=== PATIENT | female | born 1980 | race Caucasian/White ===

== ENCOUNTER 2019-05-27 12:40 | Outpatient (RCR) | payer OTHER, SELFPAY ==
--- NOTE | 2019-05-27 13:45 | PTOPEVAL ---
Thank you for referring this patient to [facility]. Please review, sign, date and return this plan of care JIGNESH. I agree with and certify that the following plan of care is medically necessary. Referring Physician Date Admitting Provider: Attending Provider: PHYSICIAN NOT ON STAFF Referring Provider: *PT Outpatient Evaluation Start: 05/27/19 13:01 Freq: Status: Active Protocol: Document 05/27/19 13:02 NICOLLE (Rec: 05/27/19 13:37 [id number]) Therapy Assessment Status Assessment Status Assessment Status Evaluation Outpatient Past Medical History Past Medical History Reason Unable to Obtain see patient intake form Evaluation Information Problem Diagnosis fibromyalgia Onset 05/02/19 Subjective Information patient reports sheis having Query Text:As Reported By Patient/ pain everywhere this date. Family she reports she has had 2 dislocations of the L knee and bilateral hips in the past 2 days. she reports she has increased pain recently and has just switched medications from tramadol to naltrexone. she reports she is switching due to the new studie son opiod addictions. she reports she has been flared up since before the switch in meds, but reports she is worse since swintching medications. she reports she will have a physical dislocations of the hips that she has to put back in herself. Prior Level of Function Comments Additional Prior Level of Function patient reports she has been Comments diagnosed with Fibro since 2001. she reports she has had EDS officially diagnosed for a few years. she reports she does own a knee brace, but does not always remember to put it on. she reports she has never seen an ortho doc for her hips. Pain Assessment Timing of Pain Assessment Timing of Pain Assessment Assessment Pain Scale Pain Scale Used Numeric (1 - 10) Self Report Pain Assessment Bilateral Generalized Reported Pain Level 8 Pain Description Burning,Stabbing Current Pain Intensity
--- NOTE | 2019-06-10 11:43 | PCPTNOTE ---
06/10/19-pt called and cancelled apt secondary to illness-HM.
--- NOTE | 2019-06-12 10:56 | PCPTNOTE ---
patient called and cancelled treatment today. ASHLEY
--- NOTE | 2019-07-01 13:11 | PCPTNOTE ---
patient called and cancelled appt for today. ASHLEY
--- NOTE | 2019-07-03 11:49 | PCPTNOTE ---
patient called and cancelled appt today. Taurus
== END 2019-07-15 17:00 | disposition home or self-care (01) ==
LOC: CHSPT 12:40
PROVIDERS: PCP Internal Medicine
DX: M79.7 Fibromyalgia (principal)
CPT/HCPCS: 97110; 97162; 97530

== ENCOUNTER 2019-11-02 21:27 | Emergency (ER) | payer OTHER, SELFPAY ==
--- NOTE | ~2019-11-02 | CT_ITS ---
EXAMINATION: CT abdomen pelvis wo con DATE: 11/02/2019 22:58 INDICATION: Right flank pain. TECHNIQUE: Computed tomography (CT) of the abdomen and pelvis was performed without intravenous contr ast. Automated exposure control and iterative reconstruction technique were employed. The dose-length product was 460.46 mGy-cm. COMPARISON: CT abdomen and pelvis 01/27/2019 FINDINGS: The visualized portions of the lung bases demonstrate minimal atelectasis. No pleural effus ion. The heart size is normal. No pericardial effusion. The liver, gallbladder, spleen, pancreas, and adrenal glands are normal. There is a 2 mm stone in right kidney. There is mild right hydronephrosis . There is a 3 mm stone in proximal right ureter. Left kidney is normal. There are no dilated loops o f bowel. There are changes of appendectomy. There are no pathologically enlarged lymph nodes. There i s no free intraperitoneal fluid. The bones are unremarkable. IMPRESSION: 1. 3 mm stone in proximal right ureter with mild right hydronephrosis. 2. 2 mm nonobstructing right kidney stone. Reviewed, dictated and finalized at location A.
[2019-11-02 22:00] VITALS: BP 152/78; PULSE 74; RESP 14; TEMP 36.6; O2SAT 96
--- NOTE | 2019-11-02 22:36 | ED.BACK ---
HPI - Back Pain/Injury General Chief Complaint: Back Pain/Injury Stated Complaint: R lower back pain Source: patient Mode of arrival: ambulatory Limitations: no limitations History of Present Illness HPI Narrative: 38-year-old with a long history of kidney stones complains of. She denies vomiting fevers dysuria hematuria. Status post appendectomy and hysterectomy. Ureteral stent placement 2005 Related Data Home Medications Medication Instructions Recorded Confirmed amitriptyline 25 mg PO DAILY 11/02/19 11/02/19 quetiapine 25 mg PO HS 11/02/19 11/02/19 topiramate 50 mg PO DAILY 11/02/19 11/02/19 Allergies Allergy/AdvReac Type Severity Reaction Status Date / Time scopolamine Allergy Intermediate Unknown Verified 11/03/19 00:43 nortriptyline Allergy Unknown Verified 11/02/19 22:30 ESPAÑA Allergy Unknown Uncoded 11/02/19 22:42 Review of Systems Constitutional: Constitutional: Denies chills and Denies fever(s) Cardiovascular: Cardiovascular: Denies chest pain Respiratory: Respiratory: Denies dyspnea Gastrointestinal: Gastrointestinal: Reports nausea and Denies vomiting Genitourinary: Genitourinary: Denies hematuria and Denies dysuria [facility] Past Medical History Medical History (Updated 11/03/19 @ 21:57 by Wali Banks MD) Calcium oxalate kidney stones Migraine Struvite kidney stones Surgical History Surgical History (Updated 11/03/19 @ 21:55 by Wali Banks MD) H/O: hysterectomy History of appendectomy Exam Narrative: Exam Narrative: Siting up in bed, appears uncomfortable; in room; supportive. Const: Orientation/consciousness: patient oriented x3 Chest: Chest palpation & inspection: normal inspection of the chest Resp: Effort & Inspection: normal respiratory effort Auscultation: clear to auscultation bilaterally : General: No CVA tenderness Other: Tender right lower back extending around flank to right lateral abdomen. NO hepatomegaly, rebound or guarding. Skin: General skin exam: normal color Rashes: no rashes Extrem: General: normal to inspection Course Course Emergency Course: No relief with Toradol; Dilaudid decreased pain. CT findings discussed. High probability of passing 3 mm proximal stone. Pt given tamsolusin . D.C. with tamsolusin daily and Hoyt prn. Vital Signs Vital signs: Vital Signs Temperature 36.6 C 11/02/19 22:00 Pulse Rate 74 11/02/19 22:00 Respiratory Rate 14 11/02/19 22:00 Blood Pressure 152/78 H 11/02/19 22:00 Pulse Oximetry 96 11/02/19 22:00 Temperature 36.6 C 11/02/19 22:00 Pulse Rate 95 11/03/19 00:39 Respiratory Rate 14 11/03/19 00:39 Blood Pressure 121/75 11/03/19 00:10 Pulse Oximetry 100 11/03/19 00:39 MDM - Back Pain/Injury MDM Narrative Medical decision making narrative: Pain down to a #6/10 after Dilaudid 1 mg. Differential Diagnosis Differential diagnosis: Likely strain of lumbar region, renal colic, pyelonephritis and other (cholecystitis) Lab Data Result diagrams: 11/02/19 23:42 11/02/19 23:42 Labs: Lab Results 11/02/19 11/02/19 11/02/19 Range/Units 23:42 23:42 23:42 WBC 13.2 H (4.8-10.8) K/mm3 RBC 4.48 (4.20-5.40) M/mm3 Hgb 13.9 (12.0-15.0) g/dL Hct 42.7 (35.0-49.0) % MCV 95.3 (78.0-102.0) fL MCH 31.0 (27.0-31.0) pg MCHC 32.6 (32.0-36.0) g/dL RDW 14.3 (11.6-14.4) % Plt Count 345 (150-420) K/mm3 MPV 9.3 (9.2-11.8) fl Immature Gran % (Auto) 0.7 H (0.0-0.0) % Neut % (Auto) 81.8 H (50.0-70.0) % Lymph % (Auto) 12.2 L (18.0-42.0) % Evans % (Auto) 4.6 (2.0-11.0) % Eos % (Auto) 0.3 L (1.0-6.0) % Baso % (Auto) 0.4 (0.0-1.0) % Lymph # (Auto) 1.61 (1.10-4.50) K/mm3 Evans # (Auto) 0.61 (0.10-0.90) K/mm3 Eos # (Auto) 0.04 (0.02-0.50) K/mm3 Baso # (Auto) 0.05 (0.00-0.10) K/mm3 Abs Immat Gran (auto) 0.09 H (0.00-0.00) K/mm3 Absolute Neuts (auto)
[2019-11-02] MEDS: KETOROLAC 30 MG/ML VIAL (*BKC) IV PUSH (22:59)
[2019-11-02] MEDS: ONDANSETRON INJ 4 MG/2 ML VIAL IV PUSH (22:59)
[2019-11-02 23:00] VITALS: BP 150/79; PULSE 101; RESP 16; O2SAT 96
[2019-11-02] MEDS: HYDROmorphone HCL 2 MG/ML VIAL 1 MG IV PUSH (23:37)
[2019-11-02 23:49] LABS: Basophils Absolute Auto 0.05 K/mm3 (0.00-0.10); Basophils Percent Auto 0.4 % (0.0-1.0); Eosinophils Absolute Auto 0.04 K/mm3 (0.02-0.50); Eosinophils Percent Auto 0.3 % (1.0-6.0); Hematocrit 42.7 % (35.0-49.0); Hemoglobin 13.9 g/dL (12.0-15.0); Immature Granulocyte Absolute 0.09 K/mm3 (0.00-0.00); Immature Granulocyte Percent A 0.7 % (0.0-0.0); Lymphocytes Absolute Auto 1.61 K/mm3 (1.10-4.50); Lymphocytes Percent Auto 12.2 % (18.0-42.0); Mean Corpuscular HGB Conc 32.6 g/dL (32.0-36.0); Mean Corpuscular Volume 95.3 fL (78.0-102.0); Mean Platelet Volume 9.3 fl (9.2-11.8); Monocytes Absolute Auto 0.61 K/mm3 (0.10-0.90); Monocytes Percent Auto 4.6 % (2.0-11.0); Neutrophils Absolute Auto 10.8 K/mm3 (1.7-7.2); Neutrophils Percent Auto 81.8 % (50.0-70.0); Platelet Count Result 345 K/mm3 (150-420); Red Blood Count 4.48 M/mm3 (4.20-5.40); Red Cell Distribution Width 14.3 % (11.6-14.4); White Blood Count 13.2 K/mm3 (4.8-10.8)
[2019-11-03 00:10] VITALS: BP 121/75; PULSE 91; RESP 16; O2SAT 96
[2019-11-03 00:11] LABS: Add Urine Microscopic? YES; Alanine Aminotransferase 15 U/L (14-59); Albumin Level 3.6 g/dL (3.4-5.0); Alkaline Phosphatase 96 U/L (46-116); Anion Gap 14.7 mmol/L (7-16); Appearance Urine Sl Cloudy (Clear); Aspartate Amino Transferase 11 U/L (15-37); Bilirubin Urine Negative (Negative); Bilirubin,Total 0.2 mg/dL (0.00-1.00); Blood Urea Nitrogen 8 mg/dL (7-18); Blood Urine 2+ (Negative); Calcium 8.8 mg/dL (8.5-10.1); Carbon Dioxide 20 mmol/L (21-32); Chloride 108 mmol/L (98-108); Color Urine Yellow (Yellow); Estimated CRCL calculation 59 ml/min; Estimated Glomerular Filt Rate 54; Glucose 121 mg/dL (70-99); Glucose Urine UA Negative (Negative); Ketones Urine Trace (Negative); Leukocyte Esterase Ur Negative (Negative); Nitrate Urine Negative (Negative); Osmolality Calculated 287 mOsm/kg (285-295); Potassium 3.7 mmol/L (3.5-5.1); Protein Urine Negative (Negative); Sodium 139 mmol/L (136-145); Specific Grav Ur 1.025 (1.010-1.020); Total Protein 7.5 g/dL (6.4-8.2); pH Urine 6.5 (5.0-8.0)
[2019-11-03 00:20] LABS: Bacteria Urine 1+ /hpf; Mucus Urine Moderate /lpf; Squamous Epithelial Cell Urine Moderate /hpf (Few); WBC Urine None seen /hpf (0-3)
[2019-11-03] MEDS: MORPHINE SULFATE 4 MG/ML INJ IV PUSH (00:35)
[2019-11-03 00:39] VITALS: PULSE 95; RESP 14; O2SAT 100
[2019-11-03] MEDS: TAMSULOSIN HCL 0.4 MG CAPSULE PO (01:10)
== END 2019-11-03 01:15 | disposition home or self-care (01) ==
PROVIDERS: Emergency Provider Family Medicine; PCP Internal Medicine
DX: N20.0 Calculus of kidney (principal)
CPT/HCPCS: 36415; 74176; 80053; 81001; 85025; 96374; 96375; 99283; 99284; A9270; J1170; J1885; J2270; J2405

== ENCOUNTER 2019-11-04 18:11 | Emergency (ER) | payer OTHER, SELFPAY ==
--- NOTE | ~2019-11-04 | XR_ITS ---
EXAMINATION: XR abdomen/kub 1V INDICATION: Right-sided abdominal pain TECHNIQUE: Supine views of the abdomen were obtained on 2 radiographs. COMPARISON: CT from yesterday FINDINGS: The previously described right proximal ureteral stone is not definitely identified. Pelvic calcifications likely reflect phleboliths. The bowel gas pattern is normal. There are surgical clips in the right abdomen. A 2 mm stone projects in the right kidney. IMPRESSION: 1. Previously described right proximal ureteral stone not definitely identified. Reviewed, dictated and finalized at location A. IMPRESSION: 1. Previously described right proximal ureteral stone not definitely identified .
[2019-11-04 18:20] VITALS: BP 123/78; PULSE 93; RESP 18; TEMP 36; O2SAT 100
[2019-11-04 18:41] LABS: Basophils Absolute Auto 0.1 K/mm3 (0.0-0.1); Basophils Percent Auto 0.4 % (0.2-1.2); Eosinophils Absolute Auto 0.1 K/mm3 (0-0.3); Eosinophils Percent Auto 0.4 % (0-4.4); Hematocrit 39.1 % (37.0-47.0); Immature Granulocyte Absolute 0.05 K/mm3 (0.00-0.031); Immature Granulocyte Percent A 0.4 % (0-0.5); Lymphocytes Absolute Auto 2.12 K/mm3 (0.9-3.2); Lymphocytes Percent Auto 15.1 % (18.3-44.2); Mean Corpuscular HGB Conc 33.2 g/dl (32-36); Mean Corpuscular Hemoglobin 31.4 pg (26-34); Mean Corpuscular Volume 94.4 fl (80-100); Mean Platelet Volume 9.6 fl (7.4-10.4); Monocytes Absolute Auto 1.1 K/mm3 (0.1-0.6); Neutrophils Absolute Auto 10.7 K/mm3 (1.3-6.7); Neutrophils Percent Auto 75.7 % (45.5-73.1); Platelet Count Result 297 k/mm3 (150-375); Red Blood Count 4.14 M/mm3 (4.2-5.4); Red Cell Distribution Width 14.1 % (11.5-14.5); White Blood Count 14.1 K/mm3 (4.5-10.0)
[2019-11-04 18:53] LABS: Blood Urea Nitrogen 10 mg/dL (7-17); Carbon Dioxide 20 mmol/L (22-30); Chloride 104 mmol/L (98-107); Estimated CRCL calculation 63 ml/min; Estimated Glomerular Filt Rate 42; Glucose 100 mg/dL (65-105); Potassium 3.6 mmol/L (3.4-5.0); Sodium 133 mmol/L (137-145)
--- NOTE | 2019-11-04 19:07 | ED.GENADULT ---
HPI - General Adult General Chief complaint: Abdominal Pain Stated complaint: KIDNEY STONE Time Seen by Provider: 11/04/19 18:55 History of Present Illness HPI narrative: Patient is a 38 y/o female complaining of right flank pain starting 2 days ago. She describes her pain as a pressure and rates it as 7-8/10. Her pain radiates to right groin. She had some vomiting yesterday. She denies any fever or dysuria. Related Data Home Medications Medication Instructions Recorded Confirmed amitriptyline 25 mg PO DAILY 11/02/19 11/02/19 quetiapine 25 mg PO HS 11/02/19 11/02/19 topiramate 50 mg PO DAILY 11/02/19 11/02/19 Allergies Allergy/AdvReac Type Severity Reaction Status Date / Time scopolamine Allergy Intermediate Unknown Verified 11/03/19 00:43 nortriptyline Allergy Unknown Verified 11/02/19 22:30 ESPAÑA Allergy Unknown Uncoded 11/02/19 22:42 Review of Systems Constitutional: Constitutional: Denies chills, Denies fever(s), Denies headache(s) and Denies weakness Eyes: Eyes: Denies blurry vision ENT: Denies headache(s) and Denies neck pain Cardiovascular: Cardiovascular: Denies chest pain and Denies dyspnea Respiratory: Respiratory: Denies cough and Denies dyspnea Gastrointestinal: Gastrointestinal: Denies abdominal pain, Denies diarrhea, Reports nausea and Reports vomiting Genitourinary: Genitourinary: Denies hematuria, Denies dysuria and Reports flank pain Musculoskeletal: Musculoskeletal: Denies back pain and Denies neck pain Neurologic: Denies headache(s) and Denies weakness [facility] Past Medical History Medical History Calcium oxalate kidney stones Migraine Struvite kidney stones Surgical History Surgical History H/O: hysterectomy History of appendectomy Social History Social History Gender identity (if verbalized by the patient): Female Exam Const: General: no acute distress and well developed Orientation/consciousness: oriented to person, oriented to place, oriented to time and patient oriented x3 HENMT: Head: normocephalic Ears: external ears normal General nose exam: Normal external nose present Eyes: General: appearance normal, both eyes and all related structures Conjunctivae: conjunctivae normal Neck: Neck: normal visual inspection and full ROM Chest: Chest palpation & inspection: normal inspection of the chest and no tenderness Resp: Effort & Inspection: normal respiratory effort Auscultation: clear to auscultation bilaterally Cardio: Rate: regular rate Rhythm: regular rhythm GI: GI Palp: No abdominal tenderness and Yes Soft to palpation Skin: General skin exam: normal color and turgor normal Neuro: General: oriented to person, oriented to place, oriented to time and patient oriented x3 Cognition (Neuro): normal cognition Extrem: General: normal to inspection, full ROM and no pedal edema Psych: Appearance: grossly normal Mental Status: mental status grossly normal Affect: normal affect Course Reevaluation(s) Reevaluation #1: Rechecked. Patient feels slightly better. Discussed with patient about the options of admission for pain control vs discharge and follow up with urology. Patient prefers to be discharged. She states that she still has Hydrocodone and Flomax prescribed from her recent ED visit for same problem. Date: 11/04/19 Time: 20:51 Vital Signs Vital signs: Vital Signs Temperature 36.0 C L 11/04/19 18:20 Pulse Rate 93 11/04/19 18:20 Respiratory Rate 18 11/04/19 18:20 Blood Pressure 123/78 11/04/19 18:20 Pulse Oximetry 100 11/04/19 18:20 Temperature 36.0 C L 11/04/19 18:20 Pulse Rate 76 11/04/19 19:50 Respiratory Rate 18 11/04/19 19:50 Blood Pressure 115/72 11/04/19 19:50 Pulse Oximetry 98 11/04/19 19:50 Medical Decision Making Vital Signs Vital Signs: Maddy
[2019-11-04] MEDS: SODIUM CHLORIDE 0.9% IV 1,000 ML 999 ML IV CONT (19:46)
[2019-11-04] MEDS: MORPHINE SULFATE 4 MG/ML INJ IV PUSH ×2 (19:47→20:41)
[2019-11-04 19:50] VITALS: BP 115/72; PULSE 76; RESP 18; O2SAT 98
[2019-11-04 20:11] LABS: Add Urine Microscopic? YES; Appearance Urine Clear (Clear); Bilirubin Urine Negative (Negative); Blood Urine 1+ (Negative); Color Urine Yellow (Yellow); Glucose Urine UA Negative (Negative); Ketones Urine Negative (Negative); Leukocyte Esterase Ur Negative LEU/UL (Negative); Mucus Urine Few /lpf; Nitrate Urine Negative (Negative); Protein Urine Negative (Negative); Specific Grav Ur 1.021 (1.001-1.035); Squamous Epithelial Cell Urine Many /hpf (Few); Urobilinogen Urine Negative mg/dL (<2.0); WBC Urine 0-3 /hpf
[2019-11-04] MEDS: KETOROLAC 30 MG/ML VIAL (*BKC) IV PUSH (20:41)
== END 2019-11-04 21:51 | disposition home or self-care (01) ==
PROVIDERS: Emergency Provider Emergency Medicine; PCP Internal Medicine
DX: N20.1 Calculus of ureter (principal)
CPT/HCPCS: 36415; 74018; 80048; 81001; 85025; 96361; 96374; 96375; 96376; 99284; J1885; J2270; J7030

== ENCOUNTER 2019-11-07 02:03 | Day surgery (SDC) | payer OTHER, SELFPAY ==
[2019-11-06 12:04] VITALS: BMI 31.7
--- NOTE | ~2019-11-07 | XR_ITS ---
EXAMINATION: XR abdomen/kub 1V DATE: 11/07/2019 06:35 INDICATION: Right ureteral stone. TECHNIQUE: A supine view of the abdomen on 2 radiographs was obtained. COMPARISON: CT abdomen and pelvis 11/02/2019 FINDINGS: There are no dilated loops of bowel. There are surgical clips in right abdomen. The kidneys are obscured by bowel. IMPRESSION: 1. No visible urolithiasis. Reviewed, dictated and finalized at location A. IMPRESSION: 1. No visible urolithiasis.
--- NOTE | ~2019-11-07 | CT_ITS ---
EXAMINATION: CT abdomen pelvis wo con DATE: 11/07/2019 07:48 INDICATION: Right renal stone. TECHNIQUE: Computed tomography (CT) of the abdomen and pelvis was performed without intravenous contr ast. Automated exposure control and iterative reconstruction technique were employed. The dose-length product was 412.93 mGy-cm. COMPARISON: CT abdomen and pelvis 11/02/2019 FINDINGS: The visualized portions of the lung bases demonstrate mild atelectasis. No pleural effusion . The heart size is normal. No pericardial effusion. The liver, gallbladder, spleen, pancreas, adrena l glands, and left kidney are normal. There is a 3 mm stone in right kidney. There is mild right hydr oureter. There are no dilated loops of bowel. There are no pathologically enlarged lymph nodes. There is no free intraperitoneal fluid. There is mild thoracolumbar spondylosis. IMPRESSION: 1. Mild right hydroureter. Interval passage of the right ureteral stone. 2. 3 mm nonobstructing right kidney stone. Reviewed, dictated and finalized at location A.
--- NOTE | 2019-11-07 05:59 | ECG_ITS ---
Measurements Intervals Rogers Rate: 72 P: 51 GA: 169 QRS: 73 QRSD: 91 T: 33 QT: 374 QTc: 412 Interpretive Statements SINUS RHYTHM BASELINE ARTIFACT- I, III, AVR, AVL, V1 NORMAL ECG Electronically Signed On 11-07-2019 7:32:19 CDT by Trev Jones D.O.
[2019-11-07] MEDS: LACTATED RINGERS 1,000 ML 30 ML IV CONT (07:04)
[2019-11-07] MEDS: ONDANSETRON INJ 4 MG/2 ML VIAL IV PUSH (07:05)
[2019-11-07 07:19] LABS: Prothrombin Time 12.5 Seconds (11.1-14.7)
[2019-11-07 07:20] LABS: Partial Thromboplastin Time 28.7 SECONDS (22.3-36.8)
--- NOTE | 2019-11-07 07:21 | P.PNAN_ITS ---
Anes - Initial Pre Proc Eval Procedure: Operation Date: 11/07/19 08:30 Proposed Procedures p Right Extracorporeal Shock Wave Lithotripsy - Sang Layton MD Date/Time: 11/07/19 07:21 Surgeon: Sang Layton MD Pre Op Diagnosis: Right Renal Stone and Right Ureter Stone Patient Data Age: 38 Gender: F Height: 5 ft 9 in Weight: 97.52 kg Allergies Allergy/AdvReac Type Severity Reaction Status Date / Time scopolamine Allergy Intermediate RASH NAUSEA Verified 11/06/19 12:06 adhesive tape Allergy Rash Verified 11/06/19 12:07 nortriptyline AdvReac PARANOIA Verified 11/06/19 12:06 ESPAÑA Allergy HEART Uncoded 11/06/19 12:06 PALPITATIONS, SHORTNESS OF BREATH, FEVER Home Medications Medication Instructions Recorded Confirmed Type amitriptyline 25 mg PO HS 11/02/19 11/07/19 History quetiapine 25 mg PO HS 11/02/19 11/07/19 History topiramate 150 mg PO HS 11/02/19 11/07/19 History hydrocodone-acetaminophen [[place]] 2 tablet PO Q6H PRN #14 tablet 11/03/19 11/07/19 Rx tamsulosin 0.4 mg PO HS #20 cap 11/03/19 11/07/19 Rx amoxicillin-pot clavulanate 1 tablet PO Q12H 11/06/19 11/07/19 History esomeprazole magnesium [Nexium] 20 mg PO DAILY 11/06/19 11/07/19 History Laboratory Tests 11/07/19 06:53 PT 12.5 Seconds Seconds (11.1-14.7) INR 1.0 APTT 28.7 SECONDS SECONDS (22.3-36.8) Patient hx anesthesia problems: other (recall) Family hx anesthesia problems: none PMFSH Past Medical History Medical History (Updated 11/07/19 @ 07:22 by Neo Young MD) Anxiety Calcium oxalate kidney stones Depression Estephania-Danlos syndrome Fibromyalgia Migraine Struvite kidney stones Surgical History Surgical History H/O: hysterectomy History of appendectomy Social History Social History Smoking packs per day: 1 Smoking cigarettes per day: 20.0 Years smoked: 25 Smoking pack-years: 25.00 Smoking status: Current every day smoker Tobacco type: cigarettes Gender identity (if verbalized by the patient): Female Spiritual care concerns: No Anes - Eval Final PreProcedure Day of Procedure 11/07/19 07:21 Patient weight: obese Heart: regular rate and rhythm Lungs: decreased breath sounds Airway: Mallampati scale class II Neurological: alert and oriented Last oral intake: >/= 8 hours ASA classification: III Emergent: no Anesthetic plan: proceed Anesthesia type and monitoring: general LMA and standard monitoring Informed Consent: The patient's anesthetic plan and its attendant risks and benefits were discussed with the patient/family/POA. Questions were solicited and answers provided to the satisfaction of the patient/family/POA.
[2019-11-07 07:31] VITALS: BP 118/76; PULSE 82; TEMP 36.6; O2SAT 99
--- NOTE | 2019-11-07 07:37 | SUR.PREOP ---
0730- PT TO CT SCAN ORDERED PER DR. CAZARES.
--- NOTE | 2019-11-07 08:51 | SUR.PREOP ---
0840- PT DISCHARGED HOME PER DR. CAZARES.
== END 2019-11-07 08:40 | disposition home or self-care (01) ==
PROVIDERS: PCP Internal Medicine; Visit Provider Urology
PROC: (CPT 50590; principal; 2019-11-07 08:30)
DX: N20.1 Calculus of ureter (principal); Z53.8 Procedure and treatment not carried out for other reasons; Q79.60 Ehlers-Danlos syndrome, unspecified; M79.7 Fibromyalgia; F41.8 Other specified anxiety disorders; F17.210 Nicotine dependence, cigarettes, uncomplicated
CPT/HCPCS: 36415; 74018; 74176; 85610; 85730; 93005; 99212; G0463; J2250; J2405; J3010; J7120

== ENCOUNTER 2022-04-01 15:08 | Emergency (ER) | payer OTHER, SELFPAY ==
--- NOTE | ~2022-04-01 | CT_ITS ---
EXAMINATION: CT soft tissue neck w con DATE: 04/01/2022 18:05 INDICATION: Right-sided neck swelling TECHNIQUE: Computed tomography (CT) of the neck was performed with 75 mL Omnipaque-350 intravenous co ntrast. Automated exposure control and iterative reconstruction technique were employed. The dose-shayla gth product was 516.45 mGy-cm. COMPARISON: None FINDINGS: Orbits are normal. The paranasal sinuses, mastoid air cells and middle ear cavities are clear. Normal symmetric parotid glands. Thyroid gland is normal. No masses identified. The vasculature is patent a nd normal in caliber with dominant left vertebral artery. Airway is unremarkable. Superior mediastinu m is unremarkable. Mild paraseptal emphysema at the periphery of the bilateral upper lobes. Large oneil cified left upper lobe nodule consistent with old granulomatous disease. Bones are unremarkable. Asymmetric mild enlargement and mild diffuse enhancement with increased prominence of the internal va sculature at the right submandibular gland relative to the normal-appearing left 70%. There is also m ild inflammatory stranding surrounding the right segment of the gland consistent with right-sided yvon loadenitis. No evident sialolithiasis or abscess. There is asymmetric mild right submandibular and ju gular chain lymphadenopathy which is likely reactive. IMPRESSION: 1. Radiographically uncomplicated right sialoadenitis. Reviewed, dictated and finalized at location A. [place]
[2022-04-01 15:19] VITALS: BP 142/94; PULSE 105; RESP 15; TEMP 36.2; O2SAT 100
--- NOTE | 2022-04-01 17:09 | ED.DENTAL ---
HPI - Dental/Oral General Chief complaint: Dental/Oral Stated complaint: ST, swollen gland Time Seen by Provider: 04/01/22 17:09 History of Present Illness HPI Narrative: Patient is a 41-year-old with a history of Ehler Danlos syndrome, migraines presenting with facial and neck swelling. Patient states that starting yesterday the right side of her neck started to swell and then over approximately 30 minutes it nearly doubled in size and extended to her submandibular region. States that she is on antibiotics in preparation for a root canal. She also reports mildly sore throat. Denies any new dental pain. No difficulty breathing or swallowing. No intraoral swelling. Patient reports some nasal congestion but denies headaches, fever, chest pain, shortness of breath, abdominal pain, nausea or vomiting, diarrhea. Related Data Home Medications Medication Instructions Recorded Confirmed amitriptyline 25 mg tablet 25 mg PO HS 11/02/19 11/07/19 quetiapine 25 mg tablet 25 mg PO HS 11/02/19 11/07/19 topiramate 50 mg tablet 150 mg PO HS 11/02/19 11/07/19 amoxicillin 875 mg-potassium 1 tablet PO Q12H 11/06/19 11/07/19 clavulanate 125 mg tablet esomeprazole magnesium 20 mg 20 mg PO DAILY 11/06/19 11/07/19 capsule,delayed release (Nexium) Allergies Allergy/AdvReac Type Severity Reaction Status Date / Time scopolamine Allergy Intermediate RASH NAUSEA Verified 11/06/19 12:06 adhesive tape Allergy Rash Verified 11/06/19 12:07 nortriptyline AdvReac PARANOIA Verified 11/06/19 12:06 ESPAÑA Allergy HEART Uncoded 11/06/19 12:06 PALPITATIONS, SHORTNESS OF BREATH, FEVER Review of Systems Review of Systems: All systems reviewed & are unremarkable except as noted in HPI and below PMFSH Past Medical History Medical History Anxiety Calcium oxalate kidney stones Depression Estephania-Danlos syndrome Fibromyalgia Migraine Struvite kidney stones Surgical History Surgical History H/O: hysterectomy History of appendectomy Social History Social History Smoking packs per day: 1 Smoking cigarettes per day: 20.0 Years smoked: 25 Smoking pack-years: 25.00 Smoking status: Current every day smoker Tobacco type: cigarettes Gender identity (if verbalized by the patient): Female Spiritual care concerns: No Exam Narrative: GENERAL: Well-appearing, well-nourished, and in no acute distress. HEAD: Normocephalic, atraumatic. EYES: PERRLA and EOMI. ENT: Nares clear, no rhinorrhea or epistaxis. Mucous membranes moist. No intraoral swelling. Tonsils without edema, erythema, or exudate NECK: Supple. Soft tissue swelling along right aspect of lateral neck extending to submandibular region without significant tenderness or erythema CHEST: Clear to auscultation. No respiratory distress. HEART: Regular rate and rhythm. No murmur heard. Normal peripheral pulses. ABDOMEN: Soft, nontender, nondistended, normal active bowel sounds. EXTREMITIES: Normal range of motion. No edema. SKIN: Warm, dry, no rash. NEURO: No focal deficits. Alert and oriented x3. PSYCH: Normal mood and affect. Course Vital Signs Vital signs: Vital Signs Temperature 97.1 F L 04/01/22 15:19 Pulse Rate 105 H 04/01/22 15:19 Respiratory Rate 15 04/01/22 15:19 Blood Pressure 142/94 H 04/01/22 15:19 Pulse Oximetry 100 04/01/22 15:19 Oxygen Delivery Room Air 04/01/22 15:19 Temperature 97.1 F L 04/01/22 15:19 Pulse Rate 105 H 04/01/22 15:19 Respiratory Rate 15 04/01/22 15:19 Blood Pressure 142/94 H 04/01/22 15:19 Pulse Oximetry 100 04/01/22 15:19 Oxygen Delivery Room Air 04/01/22 15:19 MDM - Dental/Oral MDM Narrative Medical decision making narrative: Patient is a 41-year-old female presenting with neck and face swelling. Exam r
[2022-04-01 17:24] LABS: Basophils Absolute Auto 0.1 K/mm3 (0.0-0.1); Basophils Percent Auto 0.6 % (0.2-1.2); Eosinophils Absolute Auto 0.1 K/mm3 (0-0.3); Eosinophils Percent Auto 0.8 % (0-4.4); Immature Granulocyte Absolute 0.04 K/mm3 (0.00-0.031); Immature Granulocyte Percent A 0.4 % (0-0.5); Lymphocytes Absolute Auto 2.62 K/mm3 (0.9-3.2); Lymphocytes Percent Auto 29.4 % (18.3-44.2); Mean Corpuscular HGB Conc 32.6 g/dl (32-36); Mean Corpuscular Hemoglobin 30.8 pg (26-34); Mean Corpuscular Volume 94.7 fl (80-100); Mean Platelet Volume 9.1 fl (7.4-10.4); Monocytes Absolute Auto 0.6 K/mm3 (0.1-0.6); Monocytes Percent Auto 6.5 % (2.6-8.5); Neutrophils Absolute Auto 5.5 K/mm3 (1.3-6.7); Neutrophils Percent Auto 62.3 % (45.5-73.1); Platelet Count Result 348 k/mm3 (150-375); Red Blood Count 4.54 M/mm3 (4.2-5.4); Red Cell Distribution Width 13.2 % (11.5-14.5); White Blood Count 8.9 K/mm3 (4.5-10.0)
[2022-04-01 17:35] LABS: Alanine Aminotransferase 15 U/L (6-35); Albumin Level 4.3 g/dL (3.5-5.1); Alkaline Phosphatase 92 U/L (38-126); Anion Gap 5 mmol/L (8-16); Aspartate Amino Transferase 19 U/L (14-36); Bilirubin,Total 0.4 mg/dL (0.2-1.3); Blood Urea Nitrogen 7 mg/dL (7-17); Calcium 8.6 mg/dL (8.4-10.2); Carbon Dioxide 23 mmol/L (22-30); Chloride 108 mmol/L (98-107); Estimated CRCL calculation 89 ml/min; Estimated Glomerular Filt Rate > 60; Glucose 88 mg/dL (65-110); Potassium 3.9 mmol/L (3.4-5.0); Sodium 136 mmol/L (137-145)
[2022-04-01 17:48] LABS: Strep Group A RT-PCR NOT DETECTED (Negative)
[2022-04-01 18:07] LABS: Influenza A QL RT-PCR Negative (Negative); Influenza B QL RT-PCR Negative (Negative); RSV RNA, RT-PCR Negative (Negative); SARS-CoV-2 RNA PCR Negative
== END 2022-04-01 19:33 | disposition home or self-care (01) ==
PROVIDERS: Physician Assistant; Emergency Provider Emergency Medicine; PCP Internal Medicine
DX: K11.20 Sialoadenitis, unspecified (principal); Z20.822 Contact with and (suspected) exposure to COVID-19; Q79.60 Ehlers-Danlos syndrome, unspecified; M79.7 Fibromyalgia; F41.9 Anxiety disorder, unspecified; F32.A Depression, unspecified; Z87.442 Personal history of urinary calculi; F17.210 Nicotine dependence, cigarettes, uncomplicated
CPT/HCPCS: 36415; 70491; 80053; 85025; 87637; 87651; 99284; Q9967

== ENCOUNTER 2024-09-30 14:47 | Outpatient (CLI) | payer OTHER, SELFPAY ==
--- NOTE | ~2024-09-30 | XR_ITS ---
Cervical Spine: AP, lateral, open-mouth views Clinical History: Pain Findings: The normal lordotic curve is maintained. The vertebral bodies and posterior elements appea r intact. The intervertebral disc spaces are well maintained. Pre-vertebral soft tissues are unremar kable. Impression: No significant abnormality is seen. Reviewed, dictated and finalized at [facility]. Impression: No significant abnormality is seen.
--- NOTE | ~2024-09-30 | XR_ITS ---
HISTORY: Estephania Danlos syndrome, constant pain COMPARISON: None. Reference is made to a CT examination of the abdomen and pelvis dated 11/07/2019 TECHNIQUE: 2 view lumbar spine. FINDINGS: Lumbar vertebral bodies are normally aligned. There are 5 non-rib bearing lumbar vertebral bodies. Narrowing of the L5/S1 disc space is noted with endplate changes. Degenerative disease is also present, with significant facet arthropathy at all levels. Remaining disc spaces and vertebral body heights are maintained. There are no lytic or sclerotic lesions. IMPRESSION: Degenerative disease without acute fracture. Reviewed, dictated and finalized at location A.
--- OUTSIDE RECORDS SUMMARY | 2024-09-30 15:50 | XMS_ITS | Referral Summary ---
Author Organization [facility] Address [address] [place] [id number] Care Team Providers Care Instructor Flying Name Role Phone Moncho Beltran MD Primary Care Provider [phone] Corin Moore RN Unavailable Unavail le Encounters Date Type Department Care Team Description 09/29/2024 Telephone [facility] [place] [facility] Advanced Medicine [address] [place] [address] Advanced Medicine [address] [place] [address] Manuel Velez MD Pre Procedure Instructions 08/28/2024 7:13 AM CDT - 08/28/2024 11:59 PM CDT Hospital Encounter [facility] [place] at the [address] Advanced Medicine [address] [place] [address] Manuel Velez MD Tieppo Francio, Vinicius, MD Small fiber neuropathy (Primary Dx) Discharge Disposition: Discharge to home or self care 08/25/2024 Telephone [facility] at the [address] Advanced Medicine [address] [place] [address] Nadine Crawford MD PhD PMC Preprocedure 08/06/2024 7:36 AM CDT - 08/06/2024 11:59 PM CDT Hospital Encounter [facility] at the [address] [place] [address] Ramos Topete MD Small fiber neuropathy (Primary Dx); Fibromyalgia; Estephania-Danlos syndrome; Diffuse pain Discharge Disposition: Discharge to home or self care 07/31/2024 7:01 AM CDT - 07/31/2024 11:59 PM CDT Hospital Encounter [facility] [place] [facility] [address] [place] [address] for Advanced Medicine [address] [place] [address] Tom Holman MD Small fiber neuropathy (Primary Dx); Other chronic pain Discharge Disposition: Discharge to home or self care 07/29/2024 Telephone [facility] [place] [facility] [address] [place] [address] Advanced Medicine [address] [place] [address] Tom Holman MD [facility] Preprocedure 07/02/2024 12:37 PM CDT - 07/02/2024 11:59 PM CDT Hospital Encounter [facility] Advanced Medicine [address] [place] [address] Advanced Medicine [address] [place] [address] Serene Quiroga NP Small fiber neuropathy (Primary Dx) Discharge Disposition: Discharge to home or self care 06/30/2024 Telephone [facility] the [facility] Advanced Medicine [address] [place] [address] Advanced Medicine [address] [place] [address] Ramos Topete MD Pre Lidocaine infusion instructions from Last 3 Months Allergies Active Allergy Reactions Criticality Noted Date Comments Nortriptyline Other (See comments) Low 05/02/2019 Paranoid ilusions Milnacipran Fever Medium 05/02/2019 Scopolamine Fever Medium Rash VICK nausea Medications amitriptyline (ELAVIL) 25 mg tablet Take 1 tablet (25 mg total) by mouth nightly 9 Active QUEtiapine (SEROquel) 25 mg tablet Take 2 tablets (50 mg total) by mouth nightly 9 Active acetaminophen (TYLENOL) 500 mg tablet Take 1 tablet (500 mg total) by mouth every 6 (six) hours as needed for pain Once per day Active ibuprofen (ADVIL,MOTRIN) 200 mg tab/cap Take by mouth every 6 (six) hours as needed for pain At night Active rizatriptan [employer] CONSULTANT (MAXALT-[employer] CONSULTANT) 10 mg disintegrating tablet Take 1 tablet (10 mg total) by mouth once as needed 1 Active Emgality Pen 120 mg/mL pen injector Inject 120 mg under the skin every 30 (thirty) days 4 Active omeprazole (PriLOSEC) 40 mg capsule Take 1 capsule (40 mg total) by mouth daily 4 Active cephalexin (KEFLEX) 500 mg capsule TAKE ONE CAPSULE BY MOUTH FOUR TIMES DAILY UNTIL ALL TAKEN 5 Active Active Problems Problem Noted Date Diagnosed Date Medication monitoring encounter 03/16/2022 Small fiber neuropathy 01/18/2021 Assessment & Plan (12/03/2023 5:16 PM CDT): Reviewed EKG/CMP. Given ongoing significant benefit reasonable to proceed with lidocaine infusion. Continue HEP. No changes to adjuvants. Assessment & Plan (11/09/2022 4:26 PM CDT): Lidocaine infusion today. Getting good relief. 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 Never 08/28/2024 Q2: How many drinks containi ng alcohol do you have on a typical day when you are drinking? Patient does not drink Q3: How often do you have si x or more drinks on one occasion? Never 08/28/2024 Hunger Vital Sign Answer Date Recorded Within the past 12 months, y ou worried that your food would run out before you got the money to buy more. Never true 01/25/20 23 Within the past 12 months, t he food you bought just didn't last and you didn't have money to get more. Never true 01/24/2023 Personal Safety Answer Date Recorded Have you ever been in or are you currently in a harmful physical or emotional relationship or is someone making you feel afraid or unsafe? 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 Gender Identity Not on file Sexual Orientation Not on file Last Filed Vital Signs Vital Sign Reading Time Taken Comments Blood Pressure 118/60 08/28/2024 9:30 AM CDT Pulse 75 08/28/2024 9:30 AM CDT Temperature 36.6 C (97.8 F) 08/28/2024 7:21 AM CDT Respiratory Rate 12 08/28/2024 9:30 AM CDT Oxygen Saturation 97% 08/28/2024 9:30 AM CDT Inhaled Oxygen Concentration - - Weight 104.6 kg (230 lb 9.6 oz) 08/28/2024 7:21 AM CDT Height 168.9 cm (5' 6.5) 08/28/2024 7:21 AM CDT Body Mass Index 36.66 08/28/2024 7:21 AM CDT Plan of Treatment Not on file Goals Goal Patient Goal Type Associated Problems Recent Progress Patient-Stated? Author CCM Chronic Pain Care Plan Chronic Care Management On track(2024 7:37 AM CDT) Corin Fonseca, RN Note: Problem: Chronic Pain Goals: 1. Minimize further functional decline 2. Maximize quality of life 3. Control pain Strategies: - Activity/exercise program recommendation - Conservative stepwise pain medicine strategy with multi-disciplinary approach - Recommend healthy lifestyle strategies and compensatory methods as needed Insurance [facility] H[facility]/PPO Address: [address] [address] [place] [address] [facility] [employer] PPO [facility] H[facility]/PPO Address: [address] [address] [place] [address] [facility] H[facility]/PPO Address: [address] [address] [place] [address] [facility] H[facility]/PPO Address: [facility] [address] [place] [address] Care Teams Instructor Flying Relationship Specialty Start Date End Date Moncho Beltran MD PCP - General 03/18/12 Corin Moore, RN Registered Nurse 05/02/19
--- OUTSIDE RECORDS SUMMARY | 2024-09-30 15:50 | XMS_ITS | Encounter Summary ---
Author Organization [facility] Healthcare Address [address] [place] [address] Care Team Providers Care Ruling Technician Name Role Phone Moncho Beltran MD Primary Care Provider [phone] Corin Moore RN Unavailable Unavailab le Reason for Visit * Reason Onset Date Comments pre procedure instructions 08/09/2021 Encounter Details Date Type Department Care Team (Late st Contact Info) Description 08/09/2021 Telephone [facility] [place] [facility] Medicine [address] [facility] Advanced Medicine [address] [place], [place] [id number] Nadine Crawford MD PhD [address] [facility] [id number] [place], [place] [id number] pre procedure instructions Social History Tobacco Use Types Packs/Day Years Used Date Smoking Tobacco: Every Day Cigarettes 1 23 Smokeless Tobacco: Never Alcohol Use Standard Drinks/Week Comments Yes 0 (1 standard drink = 0.6 oz pur e alcohol) rarely AUDIT-C Answer Date Recorded Q1: How often do you have a drink containing alc ohol? Monthly or less 08/11/2021 Q2: How many drinks containi ng alcohol do you have on a typical day when you are drinking? 1 or 2 08/11/2021 Q3: How often do you have si x or more drinks on one occasion? 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
--- OUTSIDE RECORDS SUMMARY | 2024-09-30 15:50 | XMS_ITS | Encounter Summary ---
Author Organization [facility] Healthcare Address [address] [place] [address] Care Team Providers Care Trimming Cutter Name Role Phone Moncho Beltran MD Primary Care Provider [phone] Corin Moore RN Unavailable Unavailab le Reason for Visit * Reason Onset Date Comments PMC Preprocedure 11/29/2023 Encounter Details Date Type Department Care Team (Late st Contact Info) Description 11/29/2023 Telephone [facility] at the [place] for Advanced Medicine [address] [facility] Advanced Medicine [address] [place] [address] Manuel Velez MD [address] [facility] [address] [place] [address] PMC Preprocedure Social History Tobacco Use Types Packs/Day Years Used Date Smoking Tobacco: Every Day Cigarettes 0.8 23 Smokeless Tobacco: Never Comments:Working on stopping Alcohol Use Standard Drinks/Week Comments Yes 0 (1 standard drink = 0.6 oz pur e alcohol) rarely AUDIT-C Answer Date Recorded Q1: How often do you have a drink containing alcohol? Never 12/03/2023 Q2: How many drinks containi ng alcohol do you have on a typical day when you are drinking? Patient does not drink Q3: How often do you have si x or more drinks on one occasion? 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 Author CCM Chronic Pain Care Plan Chronic Care Management On track(2024 7:37 AM CDT) No Corin Moore, RN Note: Problem: Chronic Pain Goals: 1. Minimize further functional decline 2. Maximize quality of life 3. Control pain Strategies: - Activity/exercise program recommendation - Conservative stepwise pain medicine strategy with multi-disciplinary approach - Recommend healthy lifestyle strategies and compensatory methods as needed documented as of this encounter Visit Diagnoses Not on filedocumented in this encounter Care Teams Trimming Cutter Relationship Specialty Start Date End Date Moncoh Beltran MD PCP - General 03/18/12 Corin Moore, RN Registered Nurse 05/02/19 documented as of this encounter
--- OUTSIDE RECORDS SUMMARY | 2024-09-30 15:50 | XMS_ITS | Encounter Summary ---
Author Organization [facility] Healthcare Address [address] [place] [address] Care Team Providers Care Mask Inspector Name Role Phone Moncho Beltran MD Primary Care Provider [phone] Corin Moore RN Unavailable Unavailab le Reason for Visit * Reason Onset Date Comments LIDOCAINE INFUSION Topete] 11/08/2020 next av ailable Encounter Details Date Type Department Care Team (Late st Contact Info) Description 11/08/2020 Telephone [facility] [place] for [facility] [address] [facility] Advanced Medicine [address] [place] [address] Ramos Topete MD [address] [place] [address] LIDOCAINE INFUSION Topete] (next available) Social History Tobacco Use Types Packs/Day Years Used Date Smoking Tobacco: Every Day Cigarettes 1 23 Smokeless Tobacco: Never Alcohol Use Standard Drinks/Week Comments Yes 0 (1 standard drink = 0.6 oz pur e alcohol) rarely AUDIT-C Answer Date Recorded Q1: How often do you have a drink containing alc ohol? Monthly or less 10/05/2020 Q2: How many drinks containi ng alcohol do you have on a typical day when you are drinking? 1 or 2 10/05/2020 Q3: How often do you have si x or more drinks on one occasion? 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
--- OUTSIDE RECORDS SUMMARY | 2024-09-30 15:50 | XMS_ITS | Encounter Summary ---
Author Organization [facility] Healthcare Address [address] [place] [address] Care Team Providers Care Glue Mounter Operator Name Role Phone Moncho Beltran MD Primary Care Provider [phone] Corin Moore RN Unavailable Unavailab le Reason for Visit * Reason Onset Date Comments Pre Procedure Instructions 09/29/2024 Encounter Details Date Type Department Care Team (Late st Contact Info) Description 09/29/2024 Telephone [facility] at the [place] for Advanced Medicine [address] [facility] Advanced Medicine [address] [place] [address] Manuel Velez MD [address] [facility] [address] [place], [place] [id number] Pre Procedure Instructions Social History Tobacco Use Types Packs/Day Years [...] the money to buy more. 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
--- OUTSIDE RECORDS SUMMARY | 2024-09-30 15:50 | XMS_ITS | Encounter Summary ---
Author Organization [facility] Healthcare Address [address] [place] [address] Care Team Providers Care Explosive Operator Supervisor Name Role Phone Moncho Beltran MD Primary Care Provider [phone] Corin Moore RN Unavailable Unavailab le Reason for Visit * Reason Onset Date Comments PMC Preprocedure 02/14/2024 Encounter Details Date Type Department Care Team (Late st Contact Info) Description 02/14/[address] [facility] [place] for Advanced Medicine [address] [facility] Advanced Medicine [address] [place] [address] Ramos Topete MD [address] [place] [address] PMC Preprocedure Social History Tobacco Use Types Packs/Day Years Used Date Smoking Tobacco: Every Day Cigarettes 0.8 23 Smokeless Tobacco: Never Comments:Working on stopping Alcohol Use Standard Drinks/Week Comments Yes 0 (1 standard drink = 0.6 oz pur e alcohol) rarely AUDIT-C Answer Date Recorded Q1: How often do you have a drink containing alc ohol? Monthly or less 01/15/2024 Q2: How many drinks containi ng alcohol do you have on a typical day when you are drinking? 1 or 2 01/15/2024 Q3: How often do you have si x or more drinks on one occasion? 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
--- OUTSIDE RECORDS SUMMARY | 2024-09-30 15:50 | XMS_ITS | Encounter Summary ---
Author Organization [facility] Healthcare Address [address] [place] [address] Care Team Providers Care Stave Hewer Name Role Phone Moncho Beltran MD Primary Care Provider Corin Moore RN Unavailable Unavailab le Reason for Visit * Reason Onset Date Comments PMC Preprocedure 04/17/2024 Encounter Details Date Type Department Care Team (Late st Contact Info) Description 04/17/2024 Telephone [facility] at the [place] for Advanced Medicine [address] [facility] Advanced Medicine [address] [place] [address] Ramos Topete MD [address] [place] [address] PMC Preprocedure Social History Tobacco Use Types Packs/Day Years Used Date Smoking Tobacco: Every Day Cigarettes 0.8 23 Smokeless Tobacco: Never Comments:Working on stopping Alcohol Use Standard Drinks/Week Comments Yes 0 (1 standard drink = 0.6 oz pur e alcohol) rarely AUDIT-C Answer Date Recorded Q1: How often do you have a drink containing alcohol? Never 03/20/2024 Q2: How many drinks containi ng alcohol do you have on a typical day when you are drinking? Patient does not drink Q3: How often do you have si x or more drinks on one occasion? 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
--- OUTSIDE RECORDS SUMMARY | 2024-09-30 15:50 | XMS_ITS | Encounter Summary ---
Author Organization [facility] Healthcare Address [address] [place] [address] Care Team Providers Care Keno Dealer Name Role Phone Moncho Beltran MD Primary Care Provider [phone] Corin Moore RN Unavailable Unavailab le Reason for Visit * Reason Onset Date Comments PMC Preprocedure 10/25/2023 Encounter Details Date Type Department Care Team (Late st Contact Info) Description 10/25/2023 Telephone [facility] at the [place] for Advanced Medicine [address] [facility] Advanced Medicine [address] [place], [place] [id number] Zoya Becerra MD [address] [facility] [phone] [place] [address] PMC Preprocedure Social History Tobacco Use Types Packs/Day Years Used Date Smoking Tobacco: Every Day Cigarettes 0.8 23 Smokeless Tobacco: Never Comments:Working on stopping Alcohol Use Standard Drinks/Week Comments Yes 0 (1 standard drink = 0.6 oz pur e alcohol) rarely AUDIT-C Answer Date Recorded Q1: How often do you have a drink containing alc ohol? Monthly or less 10/29/2023 Q2: How many drinks containi ng alcohol do you have on a typical day when you are drinking? 1 or 2 10/29/2023 Q3: How often do you have si x or more drinks on one occasion? 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
--- OUTSIDE RECORDS SUMMARY | 2024-09-30 15:50 | XMS_ITS | Clinical Summary ---
Author Organization [facility] Address [address] [place] [address] Care Team Providers Care Clinical Transformation Specialist Name Role Phone Moncho Beltran MD Primary Care Provider [phone] Corin Moore RN Unavailable Unavailab le Allergies Active Allergy Reactions Criticality Noted Date [...] needed for pain At night Active rizatriptan CERTIFIED MEDICATION AIDE (MAXALT-CERTIFIED MEDICATION AIDE) 10 mg disintegrating tablet Take 1 tablet [...] MOUTH FOUR TIMES DAILY UNTIL ALL TAKEN Active Active Problems Problem Noted Date Diagnosed [...] Menorrhagia with irregular cycle 10/07/2013 Dysmenorrhea 10/07/2013 Encounters Date Type Department Care Team Description 09/29/2024 Telephone [facility] Advanced [facility] [address] [place] [address] Advanced Medicine [address] [place] [id number] Manuel Velez MD Pre Procedure Instructions 08/28/2024 7:13 AM CDT - 08/28/2024 11:59 PM CDT Hospital Encounter [facility] at the [address] [place] [id number] Manuel Velez MD Tieppo Francio, Vinicius, MD Small fiber neuropathy (Primary Dx) Discharge Disposition: Discharge to home or self care 08/25/2024 Telephone [facility] at the [facility] Advanced [facility] [address] [place] [address] Advanced Medicine [address] [place] [id number] Nadine Crawford MD PhD PMC Preprocedure 08/06/2024 7:36 AM CDT - 08/06/2024 11:59 PM CDT Hospital Encounter [facility] at the [address] [place] [id number] Ramos Topete MD Small fiber neuropathy (Primary Dx); Fibromyalgia; Estephania-Danlos syndrome; Diffuse pain Discharge Disposition: Discharge to home or self care 07/31/2024 7:01 AM CDT - 07/31/2024 11:59 PM CDT Hospital Encounter [facility] the [place] [facility] [address] [place] [address] for Advanced Medicine [address] [place] [id number] Tom Holman MD Small fiber neuropathy (Primary Dx); Other chronic pain Discharge Disposition: Discharge to home or self care 07/29/2024 Telephone [facility] at the [facility] Advanced Medicine [address] [place] [address] Advanced Medicine [address] [place] [id number] Tom Holman MD [facility] Preprocedure 07/02/2024 12:37 PM CDT - 07/02/2024 11:59 PM CDT Hospital Encounter [facility] Advanced Medicine [address] [place] [address] Advanced Medicine [address] [place] [id number] Serene Quiroga NP Small fiber neuropathy (Primary Dx) Discharge Disposition: Discharge to home or self care 06/30/2024 Telephone [facility] [place] [facility] [address] [place] [address] Advanced Medicine [address] [place] [phone] Ramos Topete MD Pre Lidocaine infusion instructions from Last 3 Months Surgical History Surgery Date Site/Laterality Comments LAPAROSCOPY laparoscopy APPENDECTOMY Appendectomy EXTRACORPOREAL SHOCK WAVE LITHOTRIPSY lithotripsy VAGINAL HYSTERECTOMY 2006 Hysterectomy, vaginal OTHER SURGICAL HISTORY D&C Medical History Medical History Date Comments Hx Other Medical chronic fatigue Hx Other Medical miscarriage Calculus of kidney kidney stones Hx Other Medical IBO Psoriasis psoriasis Hx Other Medical Headache, migra ine Depression Depression Anxiety Suicidal thoughts Headache Fibromyalgia, primary IBS (irritable bowel syndrome) Migraines Kidney stones Endometriosis GERD (gastroesophageal reflux disease) EDS (Estephania-Danlos syndrome) Low back pain Kidney stones Mid back pain Shoulder dislocation Low back pain Neck pain Family History Medical History Relation Name Comments Physical abuse Brother Cancer Father Physical Disability Father Thyroid disease Father Anxiety disorder Mother Chronic Pain Mother Depression Mother Hypertension Mother Physical Disability Mother Physical abuse Mother Other Other 1 mother has fibr omyalgia, IBD, and kidney stones father has hypothyroid, chronic lymphocystic leukemia mother has colitis grandfather has heart disease Cancer Other 2 Family history of Cancer; Other Other 3 mother has fibr omyalgia, IBD, and kidney stones father has hypothyroid, chronic lymphocystic leukemia mother has colitis grandfather has heart disease Stroke Other 4 Family history of Stroke; Other Other 5 mother has fibr omyalgia, IBD, and kidney stones father has hypothyroid, chronic lymphocystic leukemia mother has colitis grandfather has heart disease Diabetes Other 6 Family history of Diabetes mellitus; Other Other 7 mother has fibr omyalgia, IBD, and kidney stones father has hypothyroid, chronic lymphocystic leukemia mother has colitis grandfather has heart disease Hypertension Other 8 Family history of Hypertension; Cancer Other 9 Reported Family History Of Cancer - father, grandparents, uncle (Added by TW Conv) Hypertension Other 10 Reported Previo us High Blood Pressure - mother, grandmother, aunt (Added by TW Conv) Thyroid disease Other 11 Thyroid Diso rder - father, grandmother (Added by TW Conv) Diabetes Other 12 Diabetes Mellit us - grandmother, uncle (Added by TW Conv) Lung disease Other 13 Pulmonary Disea se - grandfather, uncle (Added by TW Conv) Obesity Other 14 Obesity - fathe r, grandmother, uncle (Added by TW Conv) Other Other 15 Disorders Of Bl ood And Blood-forming Organs - father (Added by TW Conv) Heart disease Other 16 Heart Disease - grandfather (Added by TW Conv) Spontaneous Other 17 Spontan eous - cousin (Added by TW Conv) Relation Name Status Comments Brother Father Mother Alive Other 1 Other 2 Other 3 Other 4 Other 5 Other 6 Other 7 Other 8 Other 9 Other 10 Other 11 Other 12 Other 13 Other 14 Other 15 Other 16 Other 17 Social History Tobacco Use Types Packs/Day Years [...] on file 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 Gender Identity Not on file Sexual Orientation Not on file Obstetrics History Last Filed Vital Signs Vital Sign Reading [...] 08/28/2024 7:21 AM CDT Plan of Treatment Health Maintenance Due Date Last Done Comments Breast Cancer Screening-Mammogram 1978 Colon Cancer Screening-Colonoscopy 1978 Depression Screening 1978 Hepatitis C Screening 1978 DTaP/Tdap/Td Vaccine (1 - Tdap) 1989 Hepatitis B Screening 1996 Regular Well Visit/Exam 18-64 1996 Pneumococcal vaccine <65 (1 of 2 - PCV) 1997 Covid-19 Vaccine (2 - 2023-2 5 season) 2023 07/14/2020 Influenza Vaccine (Season Ended) 2024 12/07/2014, 01/03/2013 HPV Vaccines Aged Out No longer eligi ble based on patient's age to complete this topic Goals Goal Patient Goal Type Associated Problems Recent Progress Patient-Stated? Author CCM Chronic Pain Care Plan Chronic Care Management On track(2024 7:37 AM CDT) Corin Fonseca RN Note: Problem: Chronic Pain Goals: 1. Minimize further functional decline 2. Maximize quality of life 3. Control pain Strategies: - Activity/exercise program recommendation - Conservative stepwise pain medicine strategy with multi-disciplinary approach - Recommend healthy lifestyle strategies and compensatory methods as needed Insurance [facility] SUPPLEMENT [facility] Care Teams Clinical Transformation Specialist Relationship Specialty Start Date End Date Moncho Beltran MD PCP - General 03/18/12 Corin Moore, RN Registered Nurse 05/02/19
--- OUTSIDE RECORDS SUMMARY | 2024-09-30 15:50 | XMS_ITS | Encounter Summary ---
Author Organization [facility] Healthcare Address [address] [place] [address] Care Team Providers Care Instructional Assistant Name Role Phone Moncho Beltran MD Primary Care Provider [phone] Corin Moore RN Unavailable Unavailab le Reason for Visit * Reason Onset Date Comments PMC Preprocedure 07/29/2024 Encounter Details Date Type Department Care Team (Late st Contact Info) Description 07/29/2024 Telephone [facility] at the [place] [facility] [address] [facility] Advanced Medicine [address] [place], [place] [id number] Tom Holman MD [address] [facility] [address] [place], [place] [id number] PMC Preprocedure Social History Tobacco Use Types Packs/Day Years Used Date Smoking Tobacco: Every Day Cigarettes 0.8 23 Smokeless Tobacco: Never Comments:Working on stopping Alcohol Use Standard Drinks/Week Comments Yes 0 (1 standard drink = 0.6 oz pur e alcohol) rarely AUDIT-C Answer Date Recorded Q1: How often do you have a drink containing alcohol? Never 07/31/2024 Q2: How many drinks containi ng alcohol do you have on a typical day when you are drinking? Patient does not drink Q3: How often do you have si x or more drinks on one occasion? 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 Never 07/31/2024 8:02 AM Hakan Galvez RN Q2: How many drinks containing alcohol do you have on a typical day when you are drinking? Patient does not drink 07/31/2024 8:02 AM Hakan Galvez RN Q3: How often do you have six or more drinks on one occasion? Never 07/31/2024 8:02 AM Hakan Galvez RN documented as of this encounter Plan of Treatment Not on file documented as of this encounter Goals Goal Patient Goal Type Associated Problems Recent Progress Patient-Stated? Author CCM Chronic Pain Care Plan Chronic Care Management On track(2024 7:37 AM CDT) No Corin Moore RN Note: Problem: Chronic Pain Goals: 1. Minimize further functional decline 2. Maximize quality of life 3. Control pain Strategies: - Activity/exercise program recommendation - Conservative stepwise pain medicine strategy with multi-disciplinary approach - Recommend healthy lifestyle strategies and compensatory methods as needed documented as of this encounter Visit Diagnoses Not on filedocumented in this encounter Care Teams Instructional Assistant Relationship Specialty Start Date End Date Moncho Beltarn MD PCP - General 03/18/12 Corin Moore RN Registered Nurse 05/02/19 documented as of this encounter
--- OUTSIDE RECORDS SUMMARY | 2024-09-30 15:50 | XMS_ITS | Encounter Summary ---
Author Organization [facility] Healthcare Address [address] [place] [address] Care Team Providers Care Data Processing Systems Consultant Name Role Phone Moncho Beltran MD Primary Care Provider [phone] Corin Moore RN Unavailable Unavailab le Reason for Visit * Reason Onset Date Comments Interested In Medicine 07/11/2019 Encounter Details Date Type Department Care Team (Late st Contact Info) Description 07/11/2019 Telephone [facility] at the [place] [facility] Medicine [address] [facility] Advanced Medicine [address] [place] [address] Korina Gutierrez, PhD [facility] [address] [place] [address] Interested In Medicine Social History Tobacco Use Types Packs/Day Years Used Date Smoking Tobacco: Every Day Cigarettes Alcohol Use Standard Drinks/Week Comments Yes 0 (1 standard drink = 0.6 oz pur e alcohol) rarely Comments No Sex and Gender Information Value Date Recorded Sex Assigned at Not on file 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
== END 2024-09-30 14:48 | disposition home or self-care (01) ==
LOC: CHSIMG 14:56
PROVIDERS: PCP Internal Medicine; Visit Provider Internal Medicine
DX: M54.50 Low back pain, unspecified (principal); R51.9 Headache, unspecified
CPT/HCPCS: 72040; 72100

== ENCOUNTER 2024-10-24 13:16 | Outpatient (CLI) | payer OTHER, SELFPAY ==
--- NOTE | ~2024-10-24 | MR_ITS ---
MRI of the brain Clinical History: Chronic headache Technique: Axial and sagittal T1-weighted images were acquired. These were followed by axial T2-weigh tala, diffusion weighted, gradient, and FLAIR images. Findings: No abnormal signal seen in the brain parenchyma. No acute infarct, intracranial hemorrhage or mass lesion. Ventricles and subarachnoid spaces are unremarkable. Orbits are unremarkable. Paranasal sinuses and m astoid air cells are clear, aside from right sphenoid sinus retention cyst or polyp. Major intracrani al flow voids are intact. Sagittal midline structures are intact. IMPRESSION: No intracranial abnormality. Minimal right sphenoid sinus disease. Reviewed, dictated and finalized at location .
== END 2024-10-24 13:17 | disposition home or self-care (01) ==
LOC: MICIMG 13:17
PROVIDERS: PCP Internal Medicine; Visit Provider Internal Medicine
DX: R51.9 Headache, unspecified (principal)
CPT/HCPCS: 70551

== ENCOUNTER 2025-03-05 12:02 | Emergency (ER) | payer OTHER, SELFPAY ==
--- NOTE | 2025-03-05 12:04 | ED.URI ---
HPI - URI/Sore Throat General Chief Complaint: Upper Respiratory Infection Stated Complaint: URI Symptoms Time Seen by Provider: 03/05/25 12:04 Source: patient Mode of arrival: ambulatory Limitations: no limitations History of Present Illness HPI Narrative: Mary is a 44 year old female patient presenting to the clinic today with c/o fever, nasal/sinus congestion, coughing up green/yellow phlegm, chest congestion, body aches, headache, and ear pain x 10 days. She reports she had fever the 1st day of her symptoms however that has resolved. History of fibromyalgia and Estephania-Danlos syndrome. Denies any shortness of breath or chest pain at this time. Has taken DayQuil, NyQuil, Tylenol, and ibuprofen for her symptoms. Rates pain currently 07/24. Related Data Home Medications ?Medication ?Instructions ?Recorded ?Confirmed ?Last Taken ?Type amitriptyline 25 mg tablet 25 mg PO HS 11/02/19 11/07/19 11/06/19 21:00 History quetiapine 25 mg tablet 25 mg PO HS 11/02/19 11/07/19 11/03/19 21:00 History topiramate 50 mg tablet 150 mg PO HS 11/02/19 11/07/19 11/06/19 History esomeprazole magnesium 20 mg 20 mg PO DAILY 11/06/19 11/07/19 11/07/19 04:15 History capsule,delayed release (Nexium) Allergies Allergy/AdvReac Type Severity Reaction Status Date / Time scopolamine Allergy Intermediate RASH NAUSEA Verified 03/05/25 12:16 adhesive tape Allergy Rash Verified 03/05/25 12:16 nortriptyline AdvReac PARANOIA Verified 03/05/25 12:16 ESPAÑA Allergy HEART Uncoded 11/06/19 12:06 PALPITATIONS, SHORTNESS OF BREATH, FEVER Review of Systems Review of Systems: Pertinent positives per HPI. Patient denies any rash, visual changes, dizziness, shortness of breath, chest pain, palpitations, nausea, vomiting, diarrhea, constipation, abdominal pain, or any urinary issues. [facility] Past Medical History Medical History Fibromyalgia Depression Anxiety Estephania-Danlos syndrome Calcium oxalate kidney stones Struvite kidney stones Migraine Surgical History Surgical History H/O: hysterectomy History of appendectomy Social History Social History Smoking packs per day: 1 Smoking cigarettes per day: 20.0 Years smoked: 25 Smoking pack-years: 25.00 Smoking status: Current every day smoker Tobacco type: cigarettes Gender identity (if verbalized by the patient): Female Spiritual care concerns: No Comments At the time of my signature, I reviewed and agree with the nursing past medical, surgical, social, and family history. There is no relevant family history pertinent to the patient complaint. Exam Narrative: General: Well-developed, obese, in no apparent distress Head: Normocephalic, atraumatic Eyes: Pupils equally round and reactive to light bilaterally, EOM intact, sclera and conjunctive clear, no discharge, lids normal Ears: TMs intact and congested, ear canals clear, no drainage, grossly hearing normal. Nose: Nares patent, yellow nasal discharge, moderate inflammation, maxillary sinus tenderness. Mouth: Oral pharynx without lesions or masses, good dentition, MMM. Postnasal drip Neck: Supple, trachea midline, no enlargement of anterior or posterior cervical nodes, no thyroid masses or goiter palpable. Cardio: Regular rate and rhythm, s1 and s2 normal, no murmur appreciated. Resp: Expiratory wheezing throughout lung hernandez, no rhonchi, rales, or rubs Course Course Emergency Course: Portions of this record may have been created with voice recognition software. Level of Care: Express Care Visit Vital Signs Vital signs: Vital Signs Temperature 36.3 C L 03/05/25 12:12 Pulse Rate 98 03/05/25 12:12 Respiratory Rate 18 03/05/25 12:12 Blood Pressure 123/84 03/05/25 12:12 Pulse Oximetry 98 03/05/25 12:12 Oxygen Delivery Room Air 03/05/25 12:12 Temperature 36.3 C L 03/05/25 12:12 Pulse Rate 98 03/05/25 12:12 Respiratory Rate 18 03/05/25 12:12 Blood Pressure 123/84 03/05/25 12:12 Pulse Oximetry 98 03/05/25 12:12 Oxygen Delivery Room Air 03/05/25 12:12 Vital signs reviewed MDM - URI/Sore Throat MDM Narrative Medical decision making narrative: At the time of visit patient is resting comfortably on the exam table. Patient appears to be nontoxic. C/o fever, nasal/sinus congestion, cough, chest congestion, body aches, headache, and ear pain x 10 days. She reports she had fever the 1st day of her symptoms however that has resolved. History of fibromyalgia and Estephania-Danlos syndrome. Denies any shortness of breath or chest pain at this time. Has taken DayQuil, NyQuil, Tylenol, and ibuprofen for her symptoms. Rates pain currently 4/10. On exam patient has bilateral TMs intact and congested, yellow nasal drainage with moderate anterior and inflammation, maxillary sinus tenderness, oral pharynx with postnasal drip, heart rate regular rate and rhythm, lung sounds expiratory wheezing throughout Plan: I suspect patient has sinusitis/bronchitis. Prescription for Augmentin, prednisone, and albuterol inhaler. Supportive measures were discussed with the patient and they voiced understanding discharge instructions and agrees to treatment plan. Return precautions reviewed Differential Diagnosis Differential diagnosis: Likely upper respiratory infection, otitis media, sinusitis, viral infection, bronchitis, influenza, pharyngitis and other (COVID) Discharge Plan Discharge Clinical Impression: Sinobronchitis Patient Disposition: Home Condition: Stable Instructions: Antibiotic Form, Sinusitis (ED), Acute Bronchitis (ED) Additional Instructions: Take prescription medications only as prescribed-prednisone, Augmentin, and albuterol inhaler Increase fluids and stay well hydrated May take Tylenol or motrin as directed on bottle for pain/fever May use Flonase 1 spray in each nare daily May take OTC antihistamines such as Zyrtec or Claritin daily as directed on bottle May apply Vicks vapor rub to chest to open sinuses Sinus rinses for congestion Cepacol spray, cough drops, throat lozenges, warm tea with honey/lemon, gargle salt water to soothe throat BRAT diet for diarrhea Clear liquids x 24 hours then advance as tolerated for nausea/vomiting Go to the ED if you develop a worsening in your condition- high fever not controlled by Tylenol or Motrin, dehydration, weakness, lethargy, shortness of breath, or chest pain. Follow up with your PCP in 3-5 days if symptoms persist. Patient Language: Pashto Prescriptions: New amoxicillin-pot clavulanate 875-125 mg tablet 1 tablet PO Q12H 10 Days Qty: 20 0RF prednisone 20 mg tablet 40 mg PO DAILY 5 Days Qty: 10 0RF albuterol sulfate 90 mcg/actuation HFA aerosol inhaler 2 puff inhalation Q4-6H PRN (Reason: shortness of breath or wheezing) 30 Days Qty: 8.5 0RF No Action quetiapine 25 mg tablet 25 mg PO HS amitriptyline 25 mg tablet 25 mg PO HS topiramate 50 mg tablet 150 mg PO HS tamsulosin 0.4 mg capsule 0.4 mg PO HS Qty: 20 0RF esomeprazole magnesium [Nexium] 20 mg Capsule,Delayed Release(Dr/Ec) 20 mg PO DAILY Follow-up/Referrals: UNKNOWN,DOCTOR [Primary Care Provider] Time of Disposition: 12:19 Quality NIHSS Nursing Documentation ED NIHSS nursing documentation: reviewed/agree
[2025-03-05 12:12] VITALS: BP 123/84; PULSE 98; RESP 18; TEMP 36.3; O2SAT 98
== END 2025-03-05 12:24 | disposition home or self-care (01) ==
PROVIDERS: Emergency Provider Nurse Practitioner Family
DX: J40 Bronchitis, not specified as acute or chronic (principal); F17.210 Nicotine dependence, cigarettes, uncomplicated
CPT/HCPCS: 99213; G0463